=== PATIENT | male | born 1935 | race Caucasian/White ===

== ENCOUNTER 2016-10-24 09:56 | Emergency (ER) | payer MEDICARE, MEDICAID ==
[~2016-10-24] VITALS: Ht 167.6 cm; Wt 75.0 kg
[~2016-10-24 09:56] MED LIST: ACET325T51 PO; CHOL100043 PO; FURO-129 PO; KEP500TA PO; LACT10SO27 PO; LEVO50TA6 PO; MULT-321 PO; RIFA550T3 PO; SPIR50TA2 PO
[2016-10-24 09:58] VITALS: RESP 16
--- NOTE | 2016-10-24 10:12 | ED.REPORT ---
HPI-Altered Mental Status Date of Service Oct 24, 2016 ED Provider: Richard Neville MD 82 year old male with a history of subdural hemorrhage and thrombocytopenia presents to the ER via EMS after he was found wandering around the local [facility] , appearing confused. Police and medics were called to the scene by [facility] staff. Upon EMS arrival at the scene, medics informed the patient that they would need to take him to the ER, which seemed to aggravate the patient. He is not sure why he is at the hospital today. Patient denies fever, chills, chest pain, SOB, and any significant underlying medical problems. He admits to alcohol consumption today, but is unsure of the quantity. Hard alcohol was found in the patient's coffee mug upon his arrival in the ER. Patient lives independently. Nursing Notes Stated Complaint: CONFUSION Chief Complaint: General Complaint Nursing Notes Reviewed: Yes Allergies: Coded Allergies: No Known Allergies (Unverified , 03/20/15) Scheduled Acetaminophen (Acetaminophen) 325 Mg Tablet 650 MG PO BID Cholecalciferol (Vitamin D3) (Vitamin D) 1,000 Unit Tablet 1,000 UNIT PO DAILY Furosemide (Lasix) 20 Mg Tablet 20 MG PO BIDBL Levetiracetam (Keppra) 500 Mg Tablet 500 MG PO BID Levothyroxine (Levothyroxine) 50 Mcg Tablet 50 MCG PO DAILY Multivit with Calcium,Iron,Min (Maximum Daily Multivitamin) 1 Each Tablet 1 EACH PO DAILY Rifaximin (Xifaxan) 550 Mg Tablet 550 MG PO BID Spironolactone (Spironolactone) 50 Mg Tablet 50 MG PO DAILY Scheduled PRN Lactulose (Lactulose) 10 Gm/15 Ml Solution 10 GM PO BID PRN PRN prn General Time Seen by MD: 10:10 Chief Complaint Confused Hx Obtained From: Patient, EMS Arrived By: Ambulance Sudden in Onset?: No Onset Occurred: Onset unknown Context of Onset: EtOH use Associated with: Denies: Chest pain, Fever, Headache Past Medical History Past Medical History Subdural hemorrhage Thrombocytopenia Smoking History Unknown if Ever Smoker Social History Alcohol Use: >5 per day Ambulatory Status Independent Review of Systems Constitutional: Denies: Chills, Fever Respiratory: Denies: Non-productive cough, Shortness of breath Cardiovascular: Denies: Chest pain GI: Denies: Nausea, Vomiting Skin: Denies Diaphoresis Neurologic: Denies: Headache Psychiatric: Reports: Confusion Complete sys rev & neg: except as marked. Physical Exam Initial Vital Signs Vital Signs (First) Date Time Temp Pulse Resp B/P Pulse Ox O2 Delivery O2 Flow Rate FiO2 10/24/16 09:58 16 Room Air Initial VS: Reviewed Abdomen / GI: Soft, Non-tender, No guarding, No rebound, No distention Extremities: Vascular intact, Neuro intact, No swelling, No tenderness General/Constitutional: Awake, Alert, Well appearing, Well developed, Well hydrated, Well nourished, Cooperative Alertness: Positive: Confused Head / Eyes: Atraumatic, Normocephalic Neck: Atraumatic, Supple, No meningismus, Full range of motion, No swelling, Non-tender, No midline vertebral tend, No masses, No carotid bruit, Thyroid NL Respiratory / Chest: Breath sounds NL, Breath sounds = bilat, No respiratory distress, No rales, No rhonchi, No wheezing Cardiovascular: Heart rate NL, Regular rhythm, Heart sounds NL, Peripheral circulation NL Neurologic: No motor deficits, No sensory deficits Mental Status: Positive: Confused Speech: Positive: Slurred Ambulating well. Interpretation & Diagnostics Lab Results Interpretation Result Diagram: 10/24/16 1120 10/24/16 1120 Test 10/24/16 11:20 White Blood Count 8.1th/mm3 (3.8-10.1) Red Blood Count 4.42mil/mm3 (4.40-5.80) Hemoglobin 15.3g/dL (13.8-17.2) Hematocrit 42.2% (41.0-50.0) Mean Corpuscular Volume 95.5fL (81-100) Mean Corpuscular Hemoglobin 34.6pg (27.0-35.0) Mean Corpuscular Hemoglobin Concent 36.3% (32.0-37.0) Red Cell Distribution Width 13.7% (12.3-15.4) Platelet Count 126bil/L (150-400) Neutrophils (%) (Auto) 59.1% (40-74) Lymphocytes (%) (Auto) 28.0% (14-46) Monocytes (%) (Auto) 7.7% (4-12) Eosinophils (%) (Auto) 4.6% (0-5) Basophils (%) (Auto) 0.5% (0-3) Prothrombin Time 10.8sec (8.1-12.5) Prothromb Time International Ratio 1.01ratio Sodium Level 146mEq/L (134-144) Potassium Level 3.8mEq/L (3.5-5.2) Chloride Level 103mEq/L (97-108) Carbon Dioxide Level 23mmol/L (18-29) Blood Urea Nitrogen 7mg/dL (8-27) Creatinine 0.57mg/dL (0.76-1.27) Estimat Glomerular Filtration Rate 146mL/min (>59) Glucose Level 95mg/dL (60-99) Calcium Level 8.9mg/dL (8.5-10.1) Total Bilirubin 0.8mg/dL (0.0-1.2) Aspartate Amino Transf (AST/SGOT) 43U/L (0-50) Alanine Aminotransferase (ALT/SGPT) 25U/L (0-44) Alkaline Phosphatase 82U/L (25-160) Total Protein 7.4g/dL (6.4-8.4) Albumin 4.5g/dL (3.4-5.0) Thyroid Stimulating Hormone (TSH) 0.882uIU/mL (0.450-4.500) CT Head Interpretation IMPRESSION: Small left frontal convexity chronic subdural hematoma/hygroma. Dictated by: Joselyn Soto MD, PhD on 10/24/2016 at 12:14 Approved by: Joselyn Soto MD, PhD on 10/24/2016 at 12:21 Study: Head CT no contrast Interpretation / Wet Read by: Interpret - Radiologist Re-Eval/Medical Decision Med Decision/Clinical Course 81-year-old male history of chronic subdural hematoma, alcohol abuse, dementia presenting found in the store intoxicated and altered today. Patient showed up and he was ambulatory. His blood alcohol level was 150. CT brain showed chronic subdural no acute changes. His labs are stable. Patient's showed up and he was observed for several hours and she reported he was at his baseline. Patient ambulatory and at his baseline and therefore we discharged home with return precautions. His reports that she will watch him. Re-Evaluation/Progress #1: Time of Eval: 10:57 Re-Evaluation/Progress Note: Patient is oriented to himself and place, disoriented to current date, and does not know his date of . Re-Evaluation/Progress #2: Time of Eval: 13:02 Re-Evaluation/Progress Note: Patient is now accompanied by his who is at bedside. Patient is now at baseline, per . She agrees to check on him regularly. Discussed laband radiology results and plan to discharge. and patient are amenable to the plan. Return precautions given. All other questions addressed. Counseled Regarding: Diagnosis, Lab results, Need for follow-up, When/why to return to ED Patient Discharge & Departure Impression: Primary Impression: Alcohol intoxication Disposition: Home Discharge Condition All VS Reviewed: Yes Condition: Stable Additional Instructions: Your workup today was reassuring. I do not believe that there is any dangerous cause for your symptoms at this time. Stop drinking. Call your primary care provider to arrange a follow-up appointment tomorrow. Return to the ER if you develop worsening confusion, fever, chills, chest pain, shortness of breath, or any other concerning symptoms. Quirino Attestation Portions of this note were transcribed by Zeyad Knight. I, Dr. Neville, personally performed the history, physical exam and medical decision-making; I reviewed and confirmed the accuracy of the information in the transcribed note. Signed by: Quirino Hooper, 10/24/2016 - 13:07 Richard Neville MD Oct 24, 2016 10:12 ZEYAD KNIGHT Oct 24, 2016 10:17
[2016-10-24 12:02] LABS: INR 1.01 ratio
--- NOTE | 2016-10-24 12:23 | DRSVH ---
PROCEDURE: CT BRAIN WITHOUT CONTRAST ([id number]) INDICATIONS: altered mental status TECHNIQUE: Noncontrast 4.5 mm thick angled axial sections acquired from the foramen magnum to the vertex, with c oronal reformats. COMPARISON: [facility], CT, BRAIN W/O CONTRAST, 04/05/2014, 3:35. [facility] , CT, BRAIN W/O CONTRAST, 05/13/2013, 12:31. [facility], CT, HEAD WITHOUT CONTRAST, 02/11/2013, 2 1:29. [facility], CT, HEAD WITHOUT CONTRAST, 12/23/2012, 22:21. [facility], CT, HEAD WITHO UT CONTRAST, 10/16/2012, 18:37. [facility], CT, HEAD WITHOUT CONTRAST, 10/28/2011, 16:29. [facility], CT, HEAD WITHOUT CONTRAST, 09/13/2009, 0:55. [facility], CT, CT BRAIN WO CON, 03/20/2015, 10:14. [facility], CT, CT BRAIN WO CON, 05/11/2015, 15:47. FINDINGS: Image quality: Excellent. CSF spaces: Basal cisterns are patent. No extra-axial fluid collections. The ventricles are symmet josé luis in size and shape. Brain: Chronic appearing left frontal small subdural hematoma/hygroma is noted. Left frontal subdura l hematoma/hygroma has minimal mass effect on adjacent left frontal lobe. No acute intracranial bleed s or masses. There is cerebral volume loss for age, with resultant ventricular and sulcal prominence . There are periventricular and deep white matter chronic small vessel ischemic changes. There is i ntracranial internal carotid artery and vertebral artery atherosclerosis. Skull and face: Left frontal and left parietal elías holes are noted. Patient is status post right fro [id number] craniotomy. The visualized facial bones appear intact, without suspicious lesi ons. Sinuses: Visualized sinuses and mastoids are clear. IMPRESSION: Small left frontal convexity chronic subdural hematoma/hygroma. Dictated by: Joselyn Soto MD, PhD on 10/24/2016 at 12:14 Approved by: Joselyn Soto MD, PhD on 10/24/2016 at 12:21
[2016-10-24 12:37] LABS: BASOPHILS % (AUTO) 0.5 % (0-3); EOSINOPHILS % (AUTO) 4.6 % (0-5); MONOCYTES % (AUTO) 7.7 % (4-12); Mean Corpuscular Hemoglobin 34.6 pg (27.0-35.0); Mean Corpuscular Volume 95.5 fL (81-100); NEUTROPHILS % (AUTO) 59.1 % (40-74); Platelet Count 126 bil/L (150-400)
--- NOTE | 2016-10-24 14:21 | DRSVH ---
PROCEDURE: X-RAY CHEST ONE VIEW, PORTABLE ([id number]) INDICATIONS: CONFUSION TECHNIQUE: One view of the chest was acquired. COMPARISON: None. FINDINGS: Surgical changes and devices: Lower cervical spine fixation hardware incompletely visualized. Lungs and pleura: No pleural effusions or pneumothorax. Lungs are clear. Mediastinum: Mediastinal contours appear normal. Heart size is normal. Bones and chest wall: No suspicious bony lesions. Overlying soft tissues appear unremarkable. Mult iple healed left inferior posterior lateral rib fractures redemonstrated. IMPRESSION: No acute cardiopulmonary disease. Dictated by: Merlin Leblanc [facility] Interpreted: Joselyn Soto MD on 10/24/2016 at 14:20 Transcribed by: SUMMER on 10/24/2016 at 14:20 Approved by: Joselyn Soto MD, PhD on 10/24/2016 at 17:02
== END 2016-10-24 13:09 | disposition home or self-care (01) ==
LOC: MERGE 09:56 → SED 09:56 → EDBD 09:56 → SED 13:09
DX: F10.229 Alcohol dependence with intoxication, unspecified (principal); Y90.6 Blood alcohol level of 120-199 mg/100 ml; F03.90 Unspecified dementia, unspecified severity, without behavioral disturbance, psychotic disturbance, mood disturbance, and anxiety; Z86.79 Personal history of other diseases of the circulatory system; Z86.2 Personal history of diseases of the blood and blood-forming organs and certain disorders involving the immune mechanism

== ENCOUNTER 2016-11-19 10:02 | Emergency (ER) | payer MEDICARE, MEDICAID ==
[~2016-11-19] VITALS: Ht 165.1 cm; Wt 81.3 kg
--- NOTE | 2016-11-19 10:04 | ED.REPORT ---
HPI-Neurologic Deficit Date of Service Nov 19, 2016 ED Provider: Franky De La Torre DO Patient is an 81 year old male with a history of alcoholism, chronic subdural, seizures, traumatic brain injury and multiple other concerns presenting to the ED via EMS due to a fall. Per the EMS, the patient was found on the ground in [facility] and was slow to respond. The patient's blood sugar was 86 and the fast exam was normal per the EMS. He denied drinking alcohol though he was found with a large coffee cup half full of whiskey. The patient and told EMS that he had walked to the store but had in fact driven. When asked in the ED, the patient states he doesn't recall whether or not he drove. He also denied falling or head trauma. The patient is resistant to questioning by EMS and in the ED, and is very uncooperative. Nursing Notes Stated Complaint: FOUND ON FLOOR Nursing Notes Reviewed: Yes Allergies: Coded Allergies: No Known Allergies (Unverified , 03/20/15) Scheduled Acetaminophen (Acetaminophen) 325 Mg Tablet 650 MG PO BID Cholecalciferol (Vitamin D3) (Vitamin D) 1,000 Unit Tablet 1,000 UNIT PO DAILY Furosemide (Lasix) 20 Mg Tablet 20 MG PO BIDBL Levetiracetam (Keppra) 500 Mg Tablet 500 MG PO BID Levothyroxine (Levothyroxine) 50 Mcg Tablet 50 MCG PO DAILY Multivit with Calcium,Iron,Min (Maximum Daily Multivitamin) 1 Each Tablet 1 EACH PO DAILY Rifaximin (Xifaxan) 550 Mg Tablet 550 MG PO BID Spironolactone (Spironolactone) 50 Mg Tablet 50 MG PO DAILY Scheduled PRN Lactulose (Lactulose) 10 Gm/15 Ml Solution 10 GM PO BID PRN PRN prn General Time Seen by Provider: 09:50 Chief Complaint Other (Found down) Hx Obtained From: Patient, EMS Unable to Obtain Hx: Uncooperative Arrived By: Ambulance Sudden in Onset?: Yes Severity: Current: No pain currently Related History: Reports: Alcohol abuse Recent Healthcare: No recent doctor visit, Recent hospitalization Similar Sx Previous: Yes Past Medical History Past Medical History chronic subdural seizures arthritis 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 His ex- accompanies the patient. alcoholic Alcohol Use: Denies alcohol use Drug Use: Denies drug use Other Social History: Lives alone, , Local resident Ambulatory Status Independent Review of Systems Unable to Obtain ROS Uncooperative Physical Exam Initial Vital Signs Vital Signs (First) Date Time Temp Pulse Resp B/P Pulse Ox O2 Delivery O2 Flow Rate FiO2 11/19/16 10:10 36.7 77 17 129/63 97 Room Air Initial VS: Reviewed General/Constitutional: Awake, Alert, No acute distress slow to respond moving all extremities Head / Eyes: Atraumatic, Normocephalic, PERRL, EOMI Respiratory / Chest: Atraumatic, Breath sounds NL, Breath sounds = bilat, No respiratory distress Cardiovascular: Heart rate NL, Regular rhythm, Heart sounds NL Neurologic: Oriented X3, Speech NL, No motor deficits, No sensory deficits, CN II - XII intact no facial droop speech normal neurologically intact ENT: Atraumatic, Airway patent, Mucous membranes moist Neck: Atraumatic, Supple, Full range of motion Abdomen: Atraumatic, Soft, Non-tender Back: Atraumatic, Full range of motion Upper Extremity / MS: Atraumatic, Full range of motion Lower Extremity / Pelvis / MS: Atraumatic, Full range of motion Skin: Atraumatic, Color NL, No rash, Warm, Dry Unable to Evaluate: Positive: Uncooperative Interpretation & Diagnostics Lab Results Interpretation Result Diagram: 11/19/16 1030 11/19/16 1030 Test 11/19/16 10:30 White Blood Count 9.1th/mm3 (3.8-10.1) Red Blood Count 4.28mil/mm3 (4.40-5.80) Hemoglobin 15.4g/dL (13.8-17.2) Hematocrit 41.1% (41.0-50.0) Mean Corpuscular Volume 96.0fL (81-100) Mean Corpuscular Hemoglobin 36.0pg (27.0-35.0) Mean Corpuscular Hemoglobin Concent 37.5% (32.0-37.0) Red Cell Distribution Width 13.5% (12.3-15.4) Platelet Count 100bil/L (150-400) Neutrophils (%) (Auto) 62.9% (40-74) Lymphocytes (%) (Auto) 23.5% (14-46) Monocytes (%) (Auto) 9.4% (4-12) Eosinophils (%) (Auto) 3.3% (0-5) Basophils (%) (Auto) 0.6% (0-3) Sodium Level 141mEq/L (134-144) Potassium Level 4.9mEq/L (3.5-5.2) Chloride Level 101mEq/L (97-108) Carbon Dioxide Level 22mmol/L (18-29) Blood Urea Nitrogen 10mg/dL (8-27) Creatinine 0.53mg/dL (0.76-1.27) Estimat Glomerular Filtration Rate 159mL/min (>59) Glucose Level 93mg/dL (60-99) Calcium Level 9.5mg/dL (8.5-10.1) Total Bilirubin 0.9mg/dL (0.0-1.2) Aspartate Amino Transf (AST/SGOT) 49U/L (0-50) Alanine Aminotransferase (ALT/SGPT) 20U/L (0-44) Alkaline Phosphatase 56U/L (25-160) Total Protein 7.8g/dL (6.4-8.4) Albumin 4.1g/dL (3.4-5.0) Alcohols 215mg/dL (0-10) CT Head Interpretation IMPRESSION: 1. Stable left frontal subdural collection compatible with chronic subdural hygroma. 2. No acute intracranial abnormalities. 3. Cerebral volume loss and chronic microvascular ischemic changes. Dictated by: Mario Gibbons M.D. on 11/19/2016 at 10:42 Approved by: Mario Gibbons M.D. on 11/19/2016 at 10:46 Interpretation / Wet Read by: Interpret - Radiologist Re-Eval/Medical Decision Med Decision/Clinical Course Patient is exhibiting signs of alcohol intoxication, he is neurologically intact and after traumatic head injury has been excluded and laboratory studies are unremarkable, he ambulated with a steady gait and is clinically more sober. He will be discharged to care of his friend who will come to the ER to pick him up. Source of Hx: Old records, EMS Re-Evaluation/Progress #1: Time of Eval: 10:11 Re-Evaluation/Progress Note: NIH stroke scale attempted. Unable to complete due to patient belligerence and uncooperative behavior. Re-Evaluation/Progress #2: Time of Eval: 11:21 Re-Evaluation/Progress Note: Discussed plan for discharge with patient. The patient understands and agrees to the plan. All questions were addressed. Counseled Regarding: Diagnosis, Lab results, Need for follow-up, When/why to return to ED Discharge & Departure Impression: Primary Impression: Alcohol intoxication Discharge Condition All VS Reviewed: Yes Condition: Stable Patient Instructions: Alcohol Intoxication (ED) Additional Instructions: I strongly suggest that you stop drinking alcohol, especially in public places. Drinking alcohol in public places and subsequently becoming unresponsive and being found down on the ground will inevitably put you back in the ER every time. You should pursue long-term alcohol detox and sobriety. Crisis respite is available to help with this. Return to the ER as needed for any concerning signs or symptoms. Referrals: [facility] Scribe Attestation Portions of this note were transcribed by Leticia Gamino and Yonathan Boston. I, Dr. De La Torre, personally performed the history, physical exam and medical decision-making; I reviewed and confirmed the accuracy of the information in the transcribed note. Signed by: Quirino Phelan, and [phone]. copies to: [facility] Franky De La Torre DO Nov 19, 2016 10:04 Jaja Gamino Nov 19, 2016 10:14 YONATHAN BOSTON Nov 19, 2016 11:08 YONATHAN BOSTON Nov 19, 2016 11:08
[2016-11-19 10:10] VITALS: BP 129/63; PULSE 77; RESP 17; O2SAT 97
[2016-11-19 10:40] LABS: BASOPHILS % (AUTO) 0.6 % (0-3)
[2016-11-19 10:45] LABS: EOSINOPHILS % (AUTO) 3.3 % (0-5); MONOCYTES % (AUTO) 9.4 % (4-12); NEUTROPHILS % (AUTO) 62.9 % (40-74); Platelet Count 100 bil/L (150-400)
--- NOTE | 2016-11-19 10:47 | DRSVH ---
PROCEDURE: CT BRAIN WITHOUT CONTRAST ([id number]) INDICATIONS: ALOC, possible fall TECHNIQUE: Noncontrast 4.5 mm thick angled axial sections acquired from the foramen magnum to the vertex, with c oronal reformats. COMPARISON: [facility], CT, CT BRAIN WO CON, 10/24/2016, 11:47. FINDINGS: Image quality: Excellent. CSF spaces: Basal cisterns are patent. There is a left frontal subdural collection measuring up to 1 0 mm in thickness, unchanged. The ventricles are symmetric in size and shape. Brain: No intracranial bleeds or masses. There is moderate cerebral volume loss for age, with resul tant ventricular and sulcal prominence. There are moderate periventricular and deep white matter chr onic small vessel ischemic changes. There is intracranial internal carotid artery atherosclerosis. Skull and face: There is left frontoparietal craniotomy. Calvarium and visualized facial bones appea r intact, without suspicious lesions. Sinuses: Visualized sinuses and mastoids are clear. IMPRESSION: 1. Stable left frontal subdural collection compatible with chronic subdural hygroma. 2. No acute intracranial abnormalities. 3. Cerebral volume loss and chronic microvascular ischemic changes. Dictated by: Mario Gibbons M.D. on 11/19/2016 at 10:42 Approved by: Mario Gibbons M.D. on 11/19/2016 at 10:46
[2016-11-19 12:42] VITALS: BP 131/67; PULSE 81; RESP 17; O2SAT 98
== END 2016-11-19 12:11 | disposition home or self-care (01) ==
LOC: EDBD 10:02 → EDUNIT# 10:02 → SED 10:02
DX: F10.129 Alcohol abuse with intoxication, unspecified (principal); J44.9 Chronic obstructive pulmonary disease, unspecified; K21.9 Gastro-esophageal reflux disease without esophagitis; E03.9 Hypothyroidism, unspecified; Z87.891 Personal history of nicotine dependence
CPT/HCPCS: 36415; 70450; 80053; 85025; 99284; G0480

== ENCOUNTER 2016-11-19 15:04 | Emergency (ER) | payer MEDICARE, MEDICAID ==
[~2016-11-19] VITALS: Ht 165.1 cm; Wt 68.0 kg
[2016-11-19 15:15] VITALS: BP 127/96; PULSE 71; RESP 17; O2SAT 98
--- NOTE | 2016-11-19 15:16 | ED.REPORT ---
HPI-Trauma Minor / Fall Date of Service Nov 19, 2016 ED Provider: Franky De La Torre DO Patient is an 81 year old male, who was seen in the ED for similar symptoms earlier today, presenting to the ED due to a laceration on the top of his head. Per the EMS, the patient was found on the ground at the same [facility] as earlier today with alcohol next to him. The patient was very uncooperative during the initial interview and physical exam. He denies abdominal, chest or back pain. History is limited by patient condition. Nursing Notes Stated Complaint: FALL, INTOXICATION Chief Complaint: Multiple Trauma/Fall Nursing Notes Reviewed: Yes Allergies: Coded Allergies: No Known Allergies (Unverified , 03/20/15) Scheduled Acetaminophen (Acetaminophen) 325 Mg Tablet 650 MG PO BID Cholecalciferol (Vitamin D3) (Vitamin D) 1,000 Unit Tablet 1,000 UNIT PO DAILY Furosemide (Lasix) 20 Mg Tablet 20 MG PO BIDBL Levetiracetam (Keppra) 500 Mg Tablet 500 MG PO BID Levothyroxine (Levothyroxine) 50 Mcg Tablet 50 MCG PO DAILY Multivit with Calcium,Iron,Min (Maximum Daily Multivitamin) 1 Each Tablet 1 EACH PO DAILY Rifaximin (Xifaxan) 550 Mg Tablet 550 MG PO BID Spironolactone (Spironolactone) 50 Mg Tablet 50 MG PO DAILY Scheduled PRN Lactulose (Lactulose) 10 Gm/15 Ml Solution 10 GM PO BID PRN PRN prn General Time Seen by MD: 15:14 Chief Complaint Other (found down) Hx Obtained From: EMS Unable to Obtain Hx: Uncooperative Arrived By: Ambulance Onset Occurred: 1 - 4 hours ago Context of Onset: EtOH use Symptom Duration: Since onset Location: Head Recent Healthcare: Recent doctor visit Similar Sx Previous: Yes Past Medical History Past Medical History chronic subdural seizures arthritis 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 His ex- accompanies the patient. alcoholic Alcohol Use: Denies alcohol use Drug Use: Denies drug use Other Social History: Lives alone, , Local resident Ambulatory Status Independent Review of Systems Review of Systems Note: ROS limited by patient lack of cooperation Patient was moaning when right leg was lifted but would not indicate where he was feeling pain. Musculoskeletal: Denies: Back pain Complete sys rev & neg: except as marked. Cardiovascular: Denies: Chest pain GI: Denies: Abdominal pain Physical Exam Initial Vital Signs Vital Signs (First) Date Time Temp Pulse Resp B/P Pulse Ox O2 Delivery O2 Flow Rate FiO2 11/19/16 15:15 36.7 71 17 127/96 98 Room Air Initial VS: Reviewed General/Constitutional: Awake, Alert all extremities were able to move without pain patient was very uncooperative Neck: Atraumatic, Supple, Full range of motion Head / Eyes: Normocephalic, PERRL, EOMI left occipital skin tear ENT: Atraumatic, Airway patent, Mucous membranes moist Respiratory / Chest: Atraumatic, Breath sounds NL, Breath sounds = bilat, No respiratory distress Cardiovascular: Heart rate NL, Regular rhythm, Heart sounds NL Abdomen: Atraumatic, Soft, Non-tender Back: Atraumatic, Full range of motion non tender cervical, thoracic, and lumbar spine Upper Extremity / MS: Atraumatic, Full range of motion Lower Extremity / Pelvis / MS: Atraumatic, Full range of motion Skin: Color NL, No rash, Warm, Dry Neurologic: Oriented X3, Speech NL, No motor deficits, No sensory deficits Psychiatric: Affect NL, Mood NL Interpretation & Diagnostics Lab Results Interpretation Test 11/19/16 15:57 Alcohols 237mg/dL (0-10) Lab Results Interpretation: alcohol: 0.237 CT Head Interpretation IMPRESSION: 1. Moderate-sized left subdural hematoma demonstrates slight increased density on the current study compared to the earlier exam, which may represent acute on chronic hemorrhage. Clinical correlation and followup imaging would be of value. 2. No significant midline shift. 3. No parenchymal hemorrhage. Dictated by: Bari Jaimes M.D. on 11/19/2016 at 15:34 Approved by: Bari Jaimes M.D. on 11/19/2016 at 15:40 Interpretation / Wet Read by: Interpret - Radiologist CT C-Spine Interpretation IMPRESSION: 1. No acute fracture of the cervical spine. 2. Degenerative and postoperative changes of the cervical spine appear similar to the prior study. Dictated by: Bari Jaimes M.D. on 11/19/2016 at 15:40 Approved by: Bari Jaimes M.D. on 11/19/2016 at 15:47 Interpretation / Wet Read by: Interpret - Radiologist Re-Eval/Medical Decision Med Decision/Clinical Course Questionable worsening chronic or acute on chronic subdural. Currently awaiting input from [facility] neurosurgery. Her transferred to Dr. Eric Gr Source of Hx: Old records Re-Evaluation/Progress : Time of Eval: 17:12 Patient Status: Condition improved Re-Evaluation/Progress Note: Rechecked patient. Discussed plan to treat and close wound. The patient refuses laceration management. All questions were addressed. Consultation #1: Call Returned at: 17:39 Note: Consult with Dr. Rodriguez in Neurosurgery at [facility], who advises to contact transfer center and is unable to give advice otherwise. Consultation #2: Call Returned at: 18:13 Note: Spoke with [facility] transfer center regarding patient's case. they will call back Counseled Regarding: Diagnosis, Lab results Discharge & Departure Shift Change Sign-Out Patient Care Transferred: Yes Discussed Complaint(s): Yes Laboratory Evaluation: Back, reviewed by me Imaging Studies: Imaging discussed Impression: Primary Impression: Alcohol intoxication Discharge Condition All VS Reviewed: Yes Condition: Stable Referrals: [facility] Care Transferred to: [facility] Transferred at: 18:00 Scribe Attestation Portions of this note were transcribed by Leticia Gamino and Yonathan Boston. I, Dr. De La Torre personally performed the history, physical exam and medical decision-making; I reviewed and confirmed the accuracy of the information in the transcribed note. Signed by: Leticia Boston, Quirino, and [id number] copies to: [facility] Franky De La Torre DO Nov 19, 2016 15:15 Jaja Gamino Nov 19, 2016 15:28 YONATHAN BOSTON Nov 19, 2016 17:24
--- NOTE | 2016-11-19 16:41 | DRSVH ---
PROCEDURE: CT BRAIN WITHOUT CONTRAST ([id number]) INDICATIONS: recurrent ETOH intoxication and head injury TECHNIQUE: Noncontrast 4.5 mm thick angled axial sections acquired from the foramen magnum to the vertex, with c oronal reformats. COMPARISON: [facility], CT, CT BRAIN WO ANAHI, 11/19/2016, 10:15. FINDINGS: Image quality: Diagnostic. Brain: The subacute moderate-sized subdural hematoma overlying the left frontal lobe predominantly is similar to the previous examination and measures up to approximately 1.1 cm in thickness. Slight in creased density of the fluid within the subdural hematoma is present. No intraventricular hemorrhage or parenchymal hemorrhage is appreciated. No new subdural hematomas are identified. No extra-axial fluid collection is identified. There is no midline shift or mass effect. The orbits are grossly un remarkable. No large areas of diffusely decreased attenuation are evident within the brain to suggest diffuse cer ebral edema. Scattered areas of low attenuation within the periventricular and deep white matter of the supratentorial brain is noted. The ventricles and cortical sulci are moderately prominent. Bones: Postoperative changes related to prior right sided craniotomy are noted. The bone flap appear s intact. Otherwise, the calvarium and visualized facial bones are grossly intact. Mild mucosal thi ckening is noted involving the left maxillary sinus and ethmoid air cells. Otherwise, the imaged par anasal sinuses and mastoid air cells are clear. IMPRESSION: 1. Moderate-sized left subdural hematoma demonstrates slight increased density on the current study compared to the earlier exam, which may represent acute on chronic hemorrhage. Clinical correlation and followup imaging would be of value. 2. No significant midline shift. 3. No parenchymal hemorrhage. Dictated by: Bari Jaimes M.D. on 11/19/2016 at 15:34 Approved by: Bari Jaimes M.D. on 11/19/2016 at 15:40
--- NOTE | 2016-11-19 16:48 | DRSVH ---
PROCEDURE: CT CERVICAL SPINE WITHOUT CONTRAST ([id number]) INDICATIONS: recurrent ETOH intoxication and head injury TECHNIQUE: Noncontrast 3 mm thick sections acquired from the skull base to the T4 level. Sagittal and coronal r eformats were then constructed. For radiation dose reduction, the following was used: automated exp osure control, adjustment of mA and/or kV according to patient size. COMPARISON: [facility], CT, CT CERVICAL SPINE WO CON, 03/20/2015, 10:14. FINDINGS: Image quality: Diagnostic. Moderate motion artifact is present on several imaging sequences. Bones: The vertebral body heights and prevertebral soft tissues are within normal limits throughout t he cervical spine without evidence to suggest acute compression fracture. No displaced fracture or d islocation is evident. The odontoid appears intact. Motion through the C1, C2, and occipital condyl es resulting in inadequate evaluation of the bones within this region on the reformatted images. How ever, on the repeated images through this area without significant motion artifact, no definite fract ure is appreciated. The bone mineralization is within normal limits. Moderate degenerative changes throughout the cervical spine are similar to the prior study. There ar e postoperative changes related to a cervical fusion involving the C5 and C6 vertebral bodies. Ortho pedic hardware appears intact. Soft tissues: No prevertebral soft tissue swelling. The imaged overlying soft tissues of the neck a re within normal limits. IMPRESSION: 1. No acute fracture of the cervical spine. 2. Degenerative and postoperative changes of the cervical spine appear similar to the prior study. Dictated by: Bari Jaimes M.D. on 11/19/2016 at 15:40 Approved by: Bari Jaimes M.D. on 11/19/2016 at 15:47
[2016-11-19 16:52] VITALS: BP 106/59; PULSE 75; RESP 16; O2SAT 98
[2016-11-19 17:53] VITALS: BP 115/61; PULSE 75; RESP 16; O2SAT 96
[2016-11-19 19:04] LABS: INR 1.01 ratio
[2016-11-19 20:13] VITALS: BP 121/63; PULSE 92; RESP 18; O2SAT 100
== END 2016-11-19 20:15 | disposition short-term general hospital (02) ==
LOC: SED 15:04 → EDBD 15:04 → SED 20:15
DX: S06.5X0A Traumatic subdural hemorrhage without loss of consciousness, initial encounter (principal); S01.01XA Laceration without foreign body of scalp, initial encounter; F10.129 Alcohol abuse with intoxication, unspecified; X58.XXXA Exposure to other specified factors, initial encounter; Y93.89 Activity, other specified; Y92.512 Supermarket, store or market as the place of occurrence of the external cause; Y99.8 Other external cause status; J44.9 Chronic obstructive pulmonary disease, unspecified; E03.9 Hypothyroidism, unspecified; Z79.899 Other long term (current) drug therapy; Z87.891 Personal history of nicotine dependence
CPT/HCPCS: 36415; 70450; 72125; 82075; 85610; 99285; G0480

== ENCOUNTER 2016-12-10 14:24 | Emergency (ER) | payer MEDICARE, MEDICAID ==
[2016-12-10 14:27] VITALS: BP 146/82; PULSE 85; RESP 20
--- NOTE | 2016-12-10 15:29 | ED.REPORT ---
HPI-Trauma Minor / Fall Date of Service Dec 10, 2016 ED Provider: Jerry Bonilla MD An intoxicated 81 year old male with a history of seizure and COPD , hypothyroidism, and GERD presents to the ED via EMS with witnessed fall at [facility]. Associated symptoms include bleeding laceration to right index finger. He does not remember how he cut his finger. He denies drinking any alcohol. He states "you are the problem" when asked what is wrong. He denies being sick or injured and does not want medical evaluation, stating that he "will not do anything with the hospital" . However he is interested in taking a nap in the ED room bed. He reports that he is not sure where the hospital is in relation to where he lives but he states that he could walk home. Per nurse, he has been uncooperative. He denies being on any blood thinners. Nursing Notes Stated Complaint: GROUND LEVEL FALL, INTOXICATION Chief Complaint: Substance Abuse Nursing Notes Reviewed: Yes Allergies: Coded Allergies: No Known Allergies (Unverified , 03/20/15) Scheduled Acetaminophen (Acetaminophen) 325 Mg Tablet 650 MG PO BID Cholecalciferol (Vitamin D3) (Vitamin D) 1,000 Unit Tablet 1,000 UNIT PO DAILY Furosemide (Lasix) 20 Mg Tablet 20 MG PO BIDBL Levetiracetam (Keppra) 500 Mg Tablet 500 MG PO BID Levothyroxine (Levothyroxine) 50 Mcg Tablet 50 MCG PO DAILY Multivit with Calcium,Iron,Min (Maximum Daily Multivitamin) 1 Each Tablet 1 EACH PO DAILY Rifaximin (Xifaxan) 550 Mg Tablet 550 MG PO BID Spironolactone (Spironolactone) 50 Mg Tablet 50 MG PO DAILY Scheduled PRN Lactulose (Lactulose) 10 Gm/15 Ml Solution 10 GM PO BID PRN PRN prn General Time Seen by MD: 15:27 Chief Complaint Fall Hx Obtained From: Patient, EMS Arrived By: Ambulance Onset Occurred: 1 - 4 hours ago Symptom Duration: Since onset Severity: Current: Mild Severity: Maximum: Mild Recent Healthcare: Recent doctor visit (2 separate ED visits 11/29/16) Similar Sx Previous: No Past Medical History Past Medical History Notes: 2 separate ED visits on 11/19/16. Denies being on any blood thinners. 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 Reports: COPD Past Surgical History s/p EGD 02/13/2015: Negative for varices, normal EGD craniotomy fxd neck Family History Noncontributory Smoking History Former Smoker Social History Pt lives alone and uses the bus for transportation. His ex- accompanies the patient. No ex accompanying him to ED on 12/10/2016. alcoholic Alcohol Use: Denies alcohol use Drug Use: Denies drug use Other Social History: Lives alone, , Local resident Ambulatory Status Independent Review of Systems Unable to Obtain ROS Intoxicated Physical Exam Initial Vital Signs Vital Signs (First) Date Time Temp Pulse Resp B/P Pulse Ox O2 Delivery O2 Flow Rate FiO2 12/10/16 14:27 36.2 85 20 146/82 Initial VS: Reviewed Respiratory: No respiratory distress Cardiovascular: Intact distal pulses General/Constitutional: Awake Appearance / Presentation: Positive: Intoxicated Patient will not provide history, declines medical eval, and declines physical examination. He has alcohol on his breath, and 2 small cuts on his right index finger, cuts are very small but are bleeding a lot. He seems adequately able to ambulate without appearing as if he will immediately fall. Oriented enough that I don't feel like I need to force anything on him. Neck: Atraumatic, Full range of motion Head / Eyes: Atraumatic, Normocephalic, PERRL, EOMI Wrist / Hand: Full range of motion 2 small cuts to right index finger that are bleeding. Skin: Color NL, Warm Re-Eval/Medical Decision Med Decision/Clinical Course This gentleman persistently and consistently declines evaluation. He is uncooperative with providing medical history. The report I received was that he had fallen at the [facility] because of intoxication and was transported by EMS to the hospital for evaluation. Again he declines all evaluation. I was able to witness him do complex motor tasks and ambulate without difficulty or apparent risk of falling. I do not feel like I am in a position to force a medical evaluation upon him though I do remain significantly concerned. He does clearly have alcohol on his breath. He slept in the wrist performed for a an hour or 2 and then was up and requesting to be discharged. Source of Hx: Old records, EMS Re-Evaluation/Progress #1: Time of Eval: 15:30 Patient Status: Condition improved Re-Evaluation/Progress Note: Rechecked patient who is bleeding on ED bathroom floor. Applied bandage to right index finger. Patient chose to nap in the ED room bed. Re-Evaluation/Progress #2: Time of Eval: 18:00 Re-Evaluation/Progress Note: Rechecked patient who is standing outside of there room and wants to go home. Explained diagnosis and plan for discharge. Patient understands and agrees with the plan. All questions addressed. Counseled Regarding: Diagnosis, Need for follow-up, When/why to return to ED Discharge & Departure Impression: Primary Impression: Alcohol intoxication Additional Impression: Finger laceration Disposition: Home Discharge Condition All VS Reviewed: Yes Condition: Stable Patient Instructions: Abuse of Alcohol (ED) Additional Instructions: I recommend that you abstain from alcohol. Return to the emergency department for evaluation as desired. No significant evaluation was done today because you declined. Referrals: [facility] (PCP) Quirino Attestation Portions of this note were transcribed by Kennedy Vaughan. I, Dr. Bonilla personally performed the history, physical exam and medical decision-making; I reviewed and confirmed the accuracy of the information in the transcribed note. Signed by: Quirino Anton, 12/10/2016, [id number]. copies to: Jerry Gomez MD Dec 10, 2016 15:29 Kennedy Vaughan Dec 10, 2016 15:36 Regina Chavez Dec 10, 2016 17:02
[2016-12-10 18:19] VITALS: BP 126/73; PULSE 99; RESP 19; O2SAT 98
== END 2016-12-10 18:20 | disposition home or self-care (01) ==
LOC: EDBD 14:24 → SED 14:24
DX: F10.120 Alcohol abuse with intoxication, uncomplicated (principal); S61.210A Laceration without foreign body of right index finger without damage to nail, initial encounter; W19.XXXA Unspecified fall, initial encounter; Y93.89 Activity, other specified; Y92.512 Supermarket, store or market as the place of occurrence of the external cause; Y99.8 Other external cause status; J44.9 Chronic obstructive pulmonary disease, unspecified; E03.9 Hypothyroidism, unspecified; K21.9 Gastro-esophageal reflux disease without esophagitis; Z87.891 Personal history of nicotine dependence

== ENCOUNTER 2016-12-27 01:45 | Emergency (ER) | payer MEDICARE, MEDICAID ==
[~2016-12-27] VITALS: Ht 167.6 cm; Wt 70.5 kg
[2016-12-27 01:53] VITALS: BP 139/96; PULSE 78; RESP 18; O2SAT 98
--- NOTE | 2016-12-27 01:53 | ED.REPORT ---
HPI-Altered Mental Status Date of Service December 27, 2016 ED Provider: Too Gr MD 81 year old male with a history of TBI, chronic subdural hematoma, and seizures presents to the ER via EMS due to confusion status post falling out of bed just prior to arrival. He states that he was unable to get up, and used his Life Alert button. Medics report that they found the patient face-down on the floor upon their arrival at his residence. Patient is unable to recall why he fell out of bed. He endorses mild neck pain, but denies any shortness of breath, rib pain, hip pain, and any other significant trauma secondary to the fall. Nursing Notes Stated Complaint: ALTERED MENTAL STATUS Nursing Notes Reviewed: Yes Allergies: Coded Allergies: No Known Allergies (Unverified , 12/27/16) Scheduled Acetaminophen (Acetaminophen) 325 Mg Tablet 650 MG PO BID Cholecalciferol (Vitamin D3) (Vitamin D) 1,000 Unit Tablet 1,000 UNIT PO DAILY Furosemide (Lasix) 20 Mg Tablet 20 MG PO BIDBL Levetiracetam (Keppra) 500 Mg Tablet 500 MG PO BID Levothyroxine (Levothyroxine) 50 Mcg Tablet 50 MCG PO DAILY Multivit with Calcium,Iron,Min (Maximum Daily Multivitamin) 1 Each Tablet 1 EACH PO DAILY Rifaximin (Xifaxan) 550 Mg Tablet 550 MG PO BID Spironolactone (Spironolactone) 50 Mg Tablet 50 MG PO DAILY Scheduled PRN Lactulose (Lactulose) 10 Gm/15 Ml Solution 10 GM PO BID PRN PRN prn General Time Seen by MD: 01:53 Chief Complaint Confused Hx Obtained From: Patient Arrived By: Ambulance Sudden in Onset?: Yes Onset Occurred: Just prior to arrival Symptom Duration: Since onset Location: : Neck Quality: Painful Severity: Current: Mild Severity: Maximum: Mild Pertinent Negative: Pt denies other symptoms Related History: Reports Alcohol abuse Similar Sx Previous: Yes Past Medical History Past Medical History Notes: 2 separate ED visits on 11/19/16. Denies being on any blood thinners. 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 Reports: COPD Past Surgical History s/p EGD 02/13/2015: Negative for varices, normal EGD craniotomy fxd neck Family History Noncontributory Smoking History Former Smoker Social History Pt lives alone and uses the bus for transportation. His ex- accompanies the patient. No ex accompanying him to ED on 12/10/2016. alcoholic Alcohol Use: Denies alcohol use Drug Use: Denies drug use Other Social History: Lives alone, , Local resident Ambulatory Status Independent Review of Systems Respiratory: Denies: Non-productive cough Cardiovascular: Denies: Chest pain GI: Denies: Abdominal pain Psychiatric: Reports: Confusion Complete sys rev & neg: except as marked. Musculoskeletal: Reports: Neck pain, Denies: Back pain, Extremity pain, Joint pain, Lumbar pain, Thoracic pain Physical Exam Initial Vital Signs Vital Signs (First) Date Time Temp Pulse Resp B/P Pulse Ox O2 Delivery O2 Flow Rate FiO2 12/27/16 01:53 36.2 78 18 139/96 98 Room Air Initial VS: Reviewed Abdomen / GI: Soft, Non-tender, No guarding, No rebound, No distention Extremities: Vascular intact, Neuro intact, No swelling, No tenderness Skin: Warm, Dry, No cyanosis General/Constitutional: Awake, Alert Head / Eyes: Normocephalic, PERRL Linear contusion to the left parietal scalp. Neck: Supple, Full range of motion, No swelling, No tracheal deviation Neck / Muscle Tenderness: Positive: Midline tenderness mid (mild) Respiratory / Chest: Breath sounds NL, Breath sounds = bilat, No respiratory distress, No rales, No rhonchi, No wheezing Cardiovascular: Heart rate NL, Regular rhythm, Heart sounds NL, Peripheral circulation NL Lower Ext Edema: Positive: Bilateral 3+ (chronic appearing) Neurologic: Oriented X3, Speech NL Mental Status: Positive: Confused Demented. Not very talkative. Interpretation & Diagnostics Lab Results Interpretation Result Diagram: 12/27/16 0200 12/27/16 0200 Test 12/27/16 02:00 12/27/16 04:15 White Blood Count 10.7th/mm3 (3.8-10.1) Red Blood Count 3.52mil/mm3 (4.40-5.80) Hemoglobin 14.7g/dL (13.8-17.2) Hematocrit 34.5% (41.0-50.0) Mean Corpuscular Volume 98.0fL (81-100) Mean Corpuscular Hemoglobin 41.8pg (27.0-35.0) Mean Corpuscular Hemoglobin Concent 42.6% (32.0-37.0) Red Cell Distribution Width 13.6% (12.3-15.4) Platelet Count 99bil/L (150-400) Neutrophils (%) (Auto) 82.2% (40-74) Lymphocytes (%) (Auto) 9.9% (14-46) Monocytes (%) (Auto) 6.4% (4-12) Eosinophils (%) (Auto) 0.8% (0-5) Basophils (%) (Auto) 0.5% (0-3) Band Neutrophils % 0% (1-5) Hold Purple Top Tube Received (Received) Hold Blue Top Tube Received (Received) Sodium Level 146mEq/L (134-144) Potassium Level 3.8mEq/L (3.5-5.2) Chloride Level 102mEq/L (97-108) Carbon Dioxide Level 21mmol/L (18-29) Blood Urea Nitrogen 14mg/dL (8-27) Creatinine 0.57mg/dL (0.76-1.27) Estimat Glomerular Filtration Rate 146mL/min (>59) Glucose Level 95mg/dL (60-99) Calcium Level 9.5mg/dL (8.5-10.1) Magnesium Level 1.9mg/dL (1.6-2.6) Total Bilirubin 0.8mg/dL (0.0-1.2) Aspartate Amino Transf (AST/SGOT) 33U/L (0-50) Alanine Aminotransferase (ALT/SGPT) 18U/L (0-44) Alkaline Phosphatase 71U/L (25-160) Total Protein 7.5g/dL (6.4-8.4) Albumin 4.1g/dL (3.4-5.0) Hold [place] Top Tube Received (Received) Alcohols 142mg/dL (0-10) Urine Color Yellow (YELLOW) Urine Appearance Clear (CLEAR,HAZY) Urine pH 6.0 (5.0-8.0) Urine Specific [place] 1.010 (1.003-1.035) Urine Protein Negativemg/dL (NEG,TRACE) Urine Glucose (UA) Negativemg/dL (NEGATIVE) Urine Ketones 15mg/dL (NEGATIVE) Urine Occult Blood Negative (NEGATIVE) Urine Nitrite Negative (NEGATIVE) Urine Bilirubin Negative (NEGATIVE) Urine Urobilinogen Normalmg/dL (NORMAL) Urine Leukocyte Esterase Negative (NEGATIVE) Urine RBC 0-2/hpf (0-2) Urine WBC 0-5/hpf (0-5) Urine Epithelial Cells Occasional/hpf (NONE-MOD) Urine Crystals None seen (NONE SEEN) Urine Bacteria None/hpf (NONE-FEW) Urine Hyaline Casts None/lpf (NONE) Urine Granular Casts None seen (NONE SEEN) Urine Waxy Casts None seen (NONE SEEN) Urine Red Blood Cell Casts None seen (NONE SEEN) Urine White Blood Cell Casts None seen (NONE SEEN) Urine Mucus None seen (None Seen) Urine Trichomonas None seen (NONE SEEN) Urine Yeast None (NONE SEEN) Urinalysis Comment None Urine Culture Reflexed Not indicated ECG Interpretation ECG Interpretation: Sinus rhythm, rate 73 RBBB Time: 02:41 Interpreted by: ED physician X-Ray Chest Interpretation Chest Xray Interpretation: No acute cardiopulmonary disease. View: Portable, 1 view Interpretation / Wet Read by: Wet read ED physician X-Ray Interpretation Xray Interpretation: No fracture. X-Ray Ordered: Pelvis Interpretation / Wet Read by: Wet read ED physician CT Head Interpretation CONCLUSION: Left frontal subdural fluid collection is likely chronic hematoma or hygroma. No acute products of hemorrhage. No mass effect. Moderate age-related findings. Prior images have been requested. An addendum will follow once a direct comparison can be made. Electronically signed by Skylar Gotti MD Study: Head CT no contrast Interpretation / Wet Read by: Interpret - Radiologist CT C-Spine Interpretation CONCLUSION: Degenerative and postsurgical change in the cervical spine. No fracture or listhesis. Electronically signed by Skylar Gotti MD Study type: CT no contrast Interpretation / Wet Read by: Interpret - Radiologist Re-Eval/Medical Decision Med Decision/Clinical Course 81-year-old presents after a bed level fall with no apparent injury. He has a chronic subdural and is unchanged. Alcohol was elevated. Discussed his drinking with him, but he is uninterested in modifying his current pattern. Discharged home in stable condition, pending help with his keys, as paramedics left his keys wallet and phone at home and brought him here. Source of Hx: Old records Re-Evaluation/Progress : Time of Eval: 04:24 Re-Evaluation/Progress Note: Discussed lab and imaging results and plan to discharge. Patient is amenable to the plan. Return precautions given. All other questions addressed. Counseled Regarding: Diagnosis, Lab results, Need for follow-up, When/why to return to ED Patient Discharge & Departure Impression: Primary Impression: Alcohol intoxication Additional Impression: Fall from bed Disposition: Home Discharge Condition All VS Reviewed: Yes Condition: Stable Additional Instructions: Moderate your alcohol. Follow-up with your doctor in the office. Referrals: NOPCP (PCP) Scribe Attestation Portions of this note were transcribed by Zeyad Knight. I, Dr. Gr, personally performed the history, physical exam and medical decision-making; I reviewed and confirmed the accuracy of the information in the transcribed note. Signed by: Quirino Hooper, 12/27/2016 at 05:33 Too Gr MD December 27, 2016 01:53 ZEYAD KNIGHT December 27, 2016 02:01
[2016-12-27 02:33] LABS: BASOPHILS % (AUTO) 0.5 % (0-3); EOSINOPHILS % (AUTO) 0.8 % (0-5); MONOCYTES % (AUTO) 6.4 % (4-12); Mean Corpuscular Hemoglobin 41.8 pg (27.0-35.0); NEUTROPHILS % (AUTO) 82.2 % (40-74); Platelet Count 99 bil/L (150-400)
[2016-12-27 03:08] LABS: Magnesium 1.9 mg/dL (1.6-2.6)
[2016-12-27 03:10] VITALS: BP 112/41; PULSE 76; RESP 16; O2SAT 97
[2016-12-27 04:39] LABS: APPEARANCE,URINE CLEAR (CLEAR,HAZY); COLOR,URINE YELLOW (YELLOW); OCCULT BLOOD,URINE NEGATIVE (NEGATIVE); UROBILINOGEN,URINE NORMAL (NORMAL)
--- NOTE | 2016-12-27 07:33 | DRSVH ---
PROCEDURE: CT BRAIN WITHOUT CONTRAST ([id number]) INDICATIONS: fall from bed TECHNIQUE: Noncontrast 4.5 mm thick angled axial sections acquired from the foramen magnum to the vertex, with c oronal reformats. COMPARISON: None. FINDINGS: Image quality: Excellent. CSF spaces: Basal cisterns are patent. Extra-axial fluid collection overlying the left frontal lobe exerting mild mass effect upon the underlying brain parenchyma stable since the previous study measur ing 8 mm in diameter. Ventricles are normal in size and shape. Brain: Extra-axial fluid collection exerts mild mass effect upon the left frontal lobe with no edema or midline shift. No intracranial masses or hemorrhage. Cramer-white matter interface is normal. Skull and face: Calvarium and visualized facial bones are intact, without suspicious lesions. Sinuses: Visualized sinuses and mastoids are clear. IMPRESSION: 1. Stable subacute/chronic subdural hematoma overlying the left frontal lobe exerting minimal mass ef fect on the underlying brain parenchyma with no significant midline shift. 2. There are no discrepancies with the pulmonary report. Dictated by: Richie Urban M.D. on 12/27/2016 at 7:29 Approved by: Richie Urban M.D. on 12/27/2016 at 7:31
--- NOTE | 2016-12-27 07:41 | DRSVH ---
PROCEDURE: CT CERVICAL SPINE WITHOUT CONTRAST ([id number]) INDICATIONS: fall from bed TECHNIQUE: Noncontrast 3 mm thick sections acquired from the skull base to the T4 level. Sagittal and coronal r eformats were then constructed. For radiation dose reduction, the following was used: automated exp osure control, adjustment of mA and/or kV according to patient size. COMPARISON: None. FINDINGS: Image quality: Excellent. Bones: No acute fractures or dislocations. Anterior plate and screw fusion of C5-6 which is radiograp hically intact. Loss of the normal cervical process. Multilevel degenerative change with intervertebr al disc loss and osteophyte formation greatest at C3-5 appropriate for the patient's age.. Soft tissues: Prevertebral soft tissues are normal in thickness. No paravertebral hematomas. No ap ical pneumothoraces. IMPRESSION: 1. No acute pathology in the cervical spine. 2. Degenerative and postoperative changes as described above. 3. There are no discrepant with the pulmonary report. Dictated by: Richie Urban M.D. on 12/27/2016 at 7:32 Approved by: Richie Urban M.D. on 12/27/2016 at 7:40
--- NOTE | 2016-12-27 08:00 | DRSVH ---
PROCEDURE: X-RAY CHEST ONE VIEW, PORTABLE ([id number]) INDICATIONS: fall from bed TECHNIQUE: One view of the chest was acquired. COMPARISON: October 24, 2016. FINDINGS: Surgical changes and devices: None. Lungs and pleura: Left mid lung plate like atelectasis. Otherwise the lungs are clear. No pleural ef fusions.. Mediastinum: Mediastinal contours appear normal. Heart size is normal. Bones and chest wall: No suspicious bony lesions. Overlying soft tissues appear unremarkable. Cerv ical spine postoperative change. Irregularity of the posterior right ninth rib stable since the previ ous study. Old left rib fractures. IMPRESSION: No acute findings. Chronic findings as described above. Dictated by: Richie Urban M.D. on 12/27/2016 at 7:56 Approved by: Rcihie Urban M.D. on 12/27/2016 at 7:58
--- NOTE | 2016-12-27 09:03 | DRSVH ---
PROCEDURE: X-RAY PELVIS WITH BILATERAL HIPS, 3 VIEWS INDICATIONS: fall from bed TECHNIQUE: AP pelvis with lateral view(s) of the bilateral hip(s). COMPARISON: None. FINDINGS: Bones: No displaced fractures or dislocations. Pelvic ring appears intact. No suspicious bony lesi ons. Mild degenerative changes of the bilateral hips and sacroiliac joints are noted. Soft tissues: The visualized bowel gas pattern is normal. No suspicious soft tissue calcifications. IMPRESSION: No displaced fractures are evident. If there is high clinical concern for an acute pelvi c fracture, please consider CT or MR imaging for further evaluation. Dictated by: Bari Jaimes M.D. on 12/27/2016 at 8:00 Approved by: Bari Jaimes M.D. on 12/27/2016 at 8:01
== END 2016-12-27 08:14 | disposition home or self-care (01) ==
LOC: SED 01:45
DX: F10.129 Alcohol abuse with intoxication, unspecified (principal); W06.XXXA Fall from bed, initial encounter; Y93.89 Activity, other specified; Y92.89 Other specified places as the place of occurrence of the external cause; Y99.8 Other external cause status; E03.9 Hypothyroidism, unspecified; K21.9 Gastro-esophageal reflux disease without esophagitis; J44.9 Chronic obstructive pulmonary disease, unspecified; Z87.891 Personal history of nicotine dependence
CPT/HCPCS: 36415; 70450; 71010; 72125; 73522; 80053; 81000; 81002; 83735; 85025; 93005; 99285; G0480

== ENCOUNTER 2017-01-28 15:11 | Emergency (ER) | payer MEDICARE, MEDICAID ==
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
[2017-01-28 15:19] LABS: BASOPHILS % (AUTO) 0.2 % (0-3); MONOCYTES % (AUTO) 6.6 % (4-12); Mean Corpuscular Hemoglobin 36.1 pg (27.0-35.0); Mean Corpuscular Volume 97.9 fL (81-100); NEUTROPHILS % (AUTO) 72.1 % (40-74); Platelet Count 91 bil/L (150-400)
[2017-01-28 15:31] LABS: INR 1.04 ratio
[2017-01-28 15:39] LABS: Magnesium 1.6 mg/dL (1.6-2.6)
--- NOTE | 2017-01-28 15:45 | DRSVH ---
PROCEDURE: CT BRAIN WITHOUT CONTRAST ([id number]) INDICATIONS: trauma TECHNIQUE: Noncontrast 4.5 mm thick angled axial sections acquired from the foramen magnum to the vertex, with c oronal reformats. COMPARISON: [facility], CT, CT BRAIN WO CON, 12/27/2016, 2:52. [facility], C T, CT BRAIN WO CON, 11/19/2016, 15:58. [facility], CT, CT BRAIN WO CON, 11/19/2016, 10:15. FINDINGS: Image quality: Excellent. CSF spaces: Basal cisterns are patent. The ventricles are symmetric in size and shape. Brain: A low-density subdural fluid collection overlying the left anterolateral frontal lobe is uncha nged, measuring roughly 8 mm in thickness. There is a small amount of ill-defined curvilinear high de nsity within the right inferolateral temporal lobe midportion spanning roughly 11 mm. There is cereb ral volume loss for age, with resultant ventricular and sulcal prominence. There are periventricular and deep white matter chronic small vessel ischemic changes. There is intracranial internal carotid artery atherosclerosis. Skull and face: Right frontoparietal craniotomy has been performed, as before. Left frontoparietal bu rr holes are present, as before. Sinuses: Visualized sinuses and mastoids are clear. IMPRESSION: 1. Small amount of right temporal subarachnoid hemorrhage. 2. No change in chronic left frontal subdural fluid collection. 3. Findings discussed with Dr. Bonilla on 01.28.17 at 1542 hrs. Dictated by: Pat Babcock M.D. on 01/28/2017 at 15:40 Approved by: Pat Babcock M.D. on 01/28/2017 at 15:44
--- NOTE | 2017-01-28 15:55 | DRSVH ---
PROCEDURE: CT CERVICAL SPINE WITHOUT CONTRAST ([id number]) INDICATIONS: trauma TECHNIQUE: Noncontrast 3 mm thick sections acquired from the skull base to the T4 level. Sagittal and coronal r eformats were then constructed. For radiation dose reduction, the following was used: automated exp osure control, adjustment of mA and/or kV according to patient size. COMPARISON: [facility], CT, CT CERVICAL SPINE WO CON, 12/27/2016, 2:52. FINDINGS: Image quality: Degraded by motion artifact. Bones: Postsurgical changes related to ACDF at C5-C6 and posterior spinal fixation at C5-C6. Hardwar e appears intact. There is expected postoperative alignment. No fractures or dislocations. Diffuse m oderate disc space narrowing throughout the cervical spine. moderate Visualized superior ribs are int act. Soft tissues: Prevertebral soft tissues are normal in thickness. No paravertebral hematomas. No ap ical pneumothoraces. IMPRESSION: No evidence of acute fracture or malalignment. Severely motion degraded examination, which limits study sensitivity. Postsurgical changes as above from C5-C6. Diffuse cervical disc degeneration as above Dictated by: Sam Colin M.D. on 01/28/2017 at 15:48 Approved by: Sam Colin M.D. on 01/28/2017 at 15:54
--- NOTE | 2017-01-28 19:26 | DRSVH ---
PROCEDURE: CT BRAIN WITHOUT CONTRAST ([id number]) INDICATIONS: Subarachnoid hemorrahge TECHNIQUE: Noncontrast 4.5 mm thick angled axial sections acquired from the foramen magnum to the vertex, with c oronal reformats. COMPARISON: [facility], CT, CT BRAIN WO CON, 01/28/2017, 15:25. FINDINGS: Image quality: Excellent. CSF spaces: Basal cisterns are patent. Stable crescentic extra-axial low-density fluid collection ov erlying the left frontal lobe measuring 1 cm in diameter extending 6 cm exerting minimal mass effect on the underlying brain parenchyma. Decreased prominence of focus of increased density in the right t emporal lobe representing acute subarachnoid hemorrhage (se 4 im 29). Ventricles are normal in size and shape. Brain: No midline shift. No intracranial masses or hemorrhage. Cramer-white matter interface is norm al. Skull and face: Calvarium and visualized facial bones are intact, without suspicious lesions. Bilat eral frontal bone postoperative change. Sinuses: Visualized sinuses and mastoids are clear. IMPRESSION: 1. Decreased prominence of right temporal lobe subarachnoid hemorrhage. 2. Chronic subdural fluid collection overlying the left frontal lobe. Dictated by: Richie Urban M.D. on 01/28/2017 at 19:11 Approved by: Richie Urban M.D. on 01/28/2017 at 19:19
[2017-01-28] MEDS ORDERED: VIT1TABL83 PO (19:37)
[2017-01-28] MEDS ORDERED: Lidocaine 1%-Epi 1:100,000 50 mL Inj NERVEBLOCK ONE (19:45)
[2017-01-28] MEDS ORDERED: Lidocaine 1%/Epi 1:100,000 30 mL MDV ONE (19:52)
[2017-01-28 21:21] VITALS: BP 138/78; PULSE 82; RESP 18; O2SAT 98
== END 2017-01-28 21:28 | disposition home or self-care (01) ==
LOC: SED 15:11
DX: S06.6X0A Traumatic subarachnoid hemorrhage without loss of consciousness, initial encounter (principal); F10.129 Alcohol abuse with intoxication, unspecified; W18.30XA Fall on same level, unspecified, initial encounter; Y93.9 Activity, unspecified; Y92.410 Unspecified street and highway as the place of occurrence of the external cause; Y99.9 Unspecified external cause status; K21.9 Gastro-esophageal reflux disease without esophagitis; Z87.820 Personal history of traumatic brain injury; Z87.891 Personal history of nicotine dependence; E03.9 Hypothyroidism, unspecified; Z79.899 Other long term (current) drug therapy
CPT/HCPCS: 12001; 36415; 70450; 72125; 80053; 83690; 83735; 85025; 85610; 99285; G0390; G0480

== ENCOUNTER 2017-01-29 12:01 | Emergency (ER) | payer MEDICARE, MEDICAID ==
[~2017-01-29] VITALS: Ht 160 cm; Wt 79.5 kg
[~2017-01-29 12:01] MED LIST changes: +VIT1TABL83 PO
[2017-01-29 12:11] VITALS: BP 141/72; PULSE 82; RESP 16; O2SAT 100
--- NOTE | 2017-01-29 12:26 | ED.REPORT ---
HPI-Head Prob / Injury Date of Service Jan 29, 2017 ED Provider: History of Present Illness: caregiver wanted head wound looked at before a shower today. Went to urgent care and transferred to ER, no pain no nausea, no vomiting, alert and oriented. primary care is Dr. Catherine, has appoint 02/12 as a new patient. lives by self. caregiver 2 days a week friday and Friday usually 4 to 5 hours. has a shower chair but does not use it. no asa, no blood thinners. Wants a meal and then wants to go home. Nursing Notes Stated Complaint: FALL Chief Complaint: General Complaint Nursing Notes Reviewed: Yes Allergies: Coded Allergies: No Known Allergies (Unverified , 01/28/17) Scheduled Cholecalciferol (Vitamin D3) (Vitamin D) 1,000 Unit Tablet 1,000 UNIT PO DAILY Furosemide (Lasix) 20 Mg Tablet 20 MG PO BIDBL Lactulose (Lactulose) 10 Gm/15 Ml Solution 1 TSP PO BID Levetiracetam (Keppra) 500 Mg Tablet 500 MG PO BID Levothyroxine (Levothyroxine) 50 Mcg Tablet 50 MCG PO DAILY Multivit with Calcium,Iron,Min (Maximum Daily Multivitamin) 1 Each Tablet 1 EACH PO DAILY Rifaximin (Xifaxan) 550 Mg Tablet 550 MG PO BID Spironolactone (Spironolactone) 50 Mg Tablet 50 MG PO DAILY Vit B Comp/C/FA/Iron/Vit E (Vitamin B Complex Tablet) 1 Each Tablet 1 EACH PO DAILY Scheduled PRN Acetaminophen (Acetaminophen) 325 Mg Tablet 650 MG PO BID PRN PRN For Pain General Time Seen by Provider: 12:26 Chief Complaint Laceration Hx Obtained From: Patient Onset Occurred: Yesterday Symptom Duration: Since onset Caused by: Fall from height Severity: Current: No pain currently Past Medical History Past Medical History Notes: 2 separate ED visits on 11/19/16. Denies being on any blood thinners. 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 Reports: COPD Past Surgical History s/p EGD 02/13/2015: Negative for varices, normal EGD craniotomy fxd neck Family History Noncontributory Smoking History Former Smoker Social History Pt lives alone and uses the bus for transportation. alcoholic Alcohol Use: 3-5 per day Drug Use: Denies drug use Other Social History: Lives alone, , Local resident Occupation lives alone 01/29/2017 Ambulatory Status Independent Review of Systems Basic Review of Systems Respiratory: No shortness of breath, No cough, No wheeze Hematologic: No bleeding, No bruising Psychiatric: Normal thought content Physical Exam Initial Vital Signs Vital Signs (First) Date Time Temp Pulse Resp B/P Pulse Ox O2 Delivery O2 Flow Rate FiO2 01/29/17 12:11 36.1 82 16 141/72 100 Room Air Initial VS: Reviewed, Vital signs normal Respiratory: Breath sounds normal, Clear to auscultation, No respiratory distress Cardiovascular: Regular rate & rhythm, Heart sounds normal, Intact distal pulses Abdomen / GI: Soft, Non-tender, No guarding, No rebound, No distention Back: No CVA tenderness Lymphatic: No lymphadenopathy Extremities: Vascular intact, Neuro intact, No swelling, No tenderness Skin: Warm, Dry, No cyanosis Psychiatric: Mood/affect normal, Behavior normal, Normal thought content General/Constitutional: Awake, Alert, No acute distress, Well appearing, Well developed, Well hydrated Head / Eyes: Atraumatic, Normocephalic, PERRL ENT: Atraumatic, Airway patent, Mucous membranes moist, Pharynx NL Neck: Atraumatic, Supple, No meningismus Neurologic: Oriented X3, Speech NL, No motor deficits, No sensory deficits, CN II - XII intact Respiratory / Chest: Atraumatic, Breath sounds NL, Breath sounds = bilat, No respiratory distress Cardiovascular: Heart rate NL, Regular rhythm, Heart sounds NL, No gallop laceration is well approximated, ecchymosis at site but no active bleeding Re-Eval/Medical Decision Med Decision/Clinical Course 81 year old male presents for evualation of head wound. Denies any concerns. Patient does not want to go to [facility] [place]. Patient had head CT repeated after 4 hours and cleared to go home. Bacitracin applied to wound and discharge home. No sign of facial fracture or epitaxis. Discharged stable condition Discharge & Departure Primary Impression: Head injury Encounter type: subsequent encounter Qualified Code: S09.90XD - Unspecified injury of head, subsequent encounter Additional Impression: Subarachnoid hemorrhage Disposition: Home Patient Instructions: Acute Wounds (ED) Additional Instructions: The laceration on your head looks good. No sign of active bleeding. Use bacitracin tot he site 2 to 3 times a day. A small amount of oozing is normal. This may happen for 1 to [address] yesterday did not show any increase in the bleeding, it actually looked like it was decreasing. With no neuro symptoms and you do desire to go home, please go home in good health. REturn with any concerns. Follow with primary care as needed. Referrals: NOPCP (PCP) EDSupervising Provider for APC: Richard Neville MD, Sue ARNP Jan 29, 2017 12:26
== END 2017-01-29 13:59 | disposition home or self-care (01) ==
LOC: SED 12:01 → EDBD 12:01 → SED 13:59
DX: S06.6X0A Traumatic subarachnoid hemorrhage without loss of consciousness, initial encounter (principal); W17.89XA Other fall from one level to another, initial encounter; Y93.9 Activity, unspecified; Y92.9 Unspecified place or not applicable; Y99.9 Unspecified external cause status; K21.9 Gastro-esophageal reflux disease without esophagitis; E03.9 Hypothyroidism, unspecified; Z87.820 Personal history of traumatic brain injury; Z87.891 Personal history of nicotine dependence; Z79.899 Other long term (current) drug therapy
CPT/HCPCS: 82075; 99283; G0463